=== PATIENT | female | born 1950 | race Caucasian/White ===

== ENCOUNTER → 2020-12-17 | Outpatient (CLI) | payer MEDICARE, OTHER ==
[~2020-12-17] MED LIST: BENICAR20 MG PO; COREG 12.5MG12.5 MG PO; CYMBALTA60 MG PO; GLUCOPHAGE500 MG PO; LORTAB 7.5-3251 EACH PO; NORVASC 5 MG TAB5 MG PO; OMEPRAZOLE40 MG PO; OZEMPIC PO; PERCOCET 10-321 EACH PO; PROGESTERONE100 MG PO; STIOLTO INH; SYNTHROID175 MCG PO; TIROSINT50 MCG PO
== END ==
LOC: KOH-I 15:46
DX: S92.351A Displaced fracture of fifth metatarsal bone, right foot, initial encounter for closed fracture (principal); M19.071 Primary osteoarthritis, right ankle and foot
CPT/HCPCS: 73630

== ENCOUNTER → 2021-01-11 | Outpatient (CLI) | payer MEDICARE, OTHER | LOC: KOH-I 11:27 | DX: S92.351A Displaced fracture of fifth metatarsal bone, right foot, initial encounter for closed fracture (principal); M19.071 Primary osteoarthritis, right ankle and foot | CPT/HCPCS: 73630 ==

== ENCOUNTER → 2021-02-11 | Outpatient (CLI) | payer MEDICARE, OTHER | LOC: KOH-I 10:54 | DX: S92.354A Nondisplaced fracture of fifth metatarsal bone, right foot, initial encounter for closed fracture (principal) | CPT/HCPCS: 73630 ==

== ENCOUNTER → 2021-03-15 | Outpatient (CLI) | payer MEDICARE, OTHER | LOC: KOH-I 10:24 | DX: S92.351D Displaced fracture of fifth metatarsal bone, right foot, subsequent encounter for fracture with routine healing (principal) | CPT/HCPCS: 73630 ==

== ENCOUNTER → 2021-04-05 | Outpatient (CLI) | payer MEDICARE, OTHER | LOC: KOH-I 09:28 | DX: S92.351A Displaced fracture of fifth metatarsal bone, right foot, initial encounter for closed fracture (principal) | CPT/HCPCS: 73630 ==